=== PATIENT | male | born 1985 | race African-American/Black ===

== ENCOUNTER 2022-05-02 01:43 | Emergency (ER) | payer OTHER ==
[~2022-05-02] VITALS: Ht 188 cm; Wt 96.0 kg
[2022-05-02] MEDS ORDERED: BACITRACIN ZINC OINT UDPKT TOP ONE (03:15)
[2022-05-02] MEDS ORDERED: IBUPROFEN 600MG TABLET PO ONE (03:15)
[2022-05-02] MEDS ORDERED: LIDOCAINE HCL/PF 1% 10 MG/ML 5ML VIAL INFIL ONE (03:15)
[2022-05-02] MEDS ORDERED: TETANUS, DIPHTHERIA, PERTUSSIS VAC/PF 0.5ML (>10YR OLD) IM ONE (03:15)
[2022-05-02] MEDS ORDERED: BO1 TP (04:26)
[2022-05-02] MEDS ORDERED: IBUP-2029 MT (04:26)
[2022-05-02 05:00] VITALS: BP 135/80
== END 2022-05-02 05:15 | disposition home or self-care (01) ==
LOC: ER 01:43
DX: S61.212A Laceration without foreign body of right middle finger without damage to nail, initial encounter (principal); E78.00 Pure hypercholesterolemia, unspecified; W26.0XXA Contact with knife, initial encounter; Y93.89 Activity, other specified; Y92.89 Other specified places as the place of occurrence of the external cause; Y99.8 Other external cause status
CPT/HCPCS: 12002; 90471; 90715; 99283; J3490

== ENCOUNTER 2023-04-01 08:14 | Emergency (ER) | payer OTHER ==
[~2023-04-01] VITALS: Ht 188 cm; Wt 96.0 kg
[~2023-04-01 08:14] MED LIST: BO1 TP; IBUP-2029 MT
[2023-04-01 08:15] VITALS: TEMP 97.6; O2SAT 100
[2023-04-01 08:54] LABS: CLARITY URINE CLEAR (CLEAR); COLOR URINE YELLOW (YELLOW); GLUCOSE URINE NEGATIVE (NEGATIVE); KETONES URINE NEGATIVE (NEGATIVE); LEUKOCYTE ESTERASE URINE NEGATIVE (NEGATIVE); NITRITE URINE NEGATIVE (NEGATIVE); OCCULT BLOOD URINE NEGATIVE (NEGATIVE); PROTEIN URINE NEGATIVE (NEGATIVE); UROBILINOGEN URINE 0.2 E.U./dL (0.2-1.0)
[2023-04-01 09:15] VITALS: BP 119/69; PULSE 69; RESP 16
[2023-04-01] MEDS ORDERED: IBUPROFEN 600MG TABLET PO ONE (09:15)
[2023-04-01] MEDS ORDERED: MECLIZINE 25MG TABLET PO ONE (09:15)
[2023-04-01 09:19] LABS: BASOPHILS % 0.6 % (0.0-2.0); EOSINOPHILS % 3.2 % (0.0-5.0); HEMATOCRIT. 44.5 % (42.0-52.0); HEMOGLOBIN. 14.7 g/dL (14.0-18.0); LYMPHOCYTES % 17.8 % (20.0-50.0); MEAN CORPUSCULAR HEMOGLOBIN 28.5 pg (28.0-32.0); MEAN CORPUSCULAR HGB CONC 33.2 g/dL (31.0-37.0); MEAN CORPUSCULAR VOLUME 85.9 fL (80.0-94.0); MEAN PLATELET VOLUME 7.4 fl (7.4-10.4); MONOCYTES % 8.3 % (2.0-8.0); NEUTROPHILS % 70.1 % (40.0-76.0); PLATELET 317 x1000/uL (130-400); RED BLOOD CELL COUNT 5.18 mill/uL (4.7-6.1); RED CELL DISTRIBUTION WIDTH 13.5 % (11.6-14.6)
[2023-04-01 09:29] LABS: CHLORIDE 109 mEq/L (98-107); INDEX HEMOLYSI 1 (1-3); INDEX ICTERIC 1 (1-4); INDEX LIPEMIC 1 (1-3); POTASSIUM 4.2 mEq/L (3.5-5.1); SODIUM 138 mEq/L (136-145)
[2023-04-01] MEDS ORDERED: MECLIZINE 12.5MG TABLET PO SCH (09:30)
[2023-04-01 09:38] LABS: ALANINE AMINOTRANSFERASE 28 IU/L (13-61); ASPARTATE AMINOTRANSFERASE 18 IU/L (15-37); BILIRUBIN TOTAL 0.6 mg/dL (0.1-1.0); CALCIUM 8.8 mg/dL (8.5-10.1); CARBON DIOXIDE 28 mEq/L (21-32); CREATININE 0.9 mg/dL (0.6-1.3); GLUCOSE 100 mg/dL (70-105); PROTEIN TOTAL 8.3 g/dL (6.0-8.3); TROPONIN I HIGH SENSITIVITY 4 ng/L (<78); UREA NITROGEN BLOOD 9 mg/dL (7-21)
[2023-04-01] MEDS ORDERED: MECL-115 PO ×3 (11:33→11:34)
== END 2023-04-01 11:57 | disposition home or self-care (01) ==
LOC: ER 08:14
DX: R42 Dizziness and giddiness (principal); R51.9 Headache, unspecified; E78.00 Pure hypercholesterolemia, unspecified
CPT/HCPCS: 99285; 71045; 80053; 81003; 85025; 84484; 36415; 93005; J8597

== ENCOUNTER 2023-09-29 07:54 | Emergency (ER) | payer OTHER ==
[~2023-09-29] VITALS: Ht 185.4 cm; Wt 89.0 kg
[~2023-09-29 07:54] MED LIST changes: +MECL-115 PO
[2023-09-29 07:55] VITALS: O2SAT 100
[2023-09-29] MEDS ORDERED: MECLIZINE 25MG TABLET PO ONE (11:00)
[2023-09-29] MEDS ORDERED: MECL-299 MT (11:07)
[2023-09-29] MEDS: IBUPROFEN 600MG TABLET PO ONE (11:09)
[2023-09-29] MEDS: MECLIZINE 12.5MG TABLET PO NR (11:10)
[2023-09-29 12:13] VITALS: BP 138/90; PULSE 60; RESP 19; TEMP 98.2
== END 2023-09-29 12:24 | disposition home or self-care (01) ==
LOC: ER 07:54
DX: R42 Dizziness and giddiness (principal); E78.00 Pure hypercholesterolemia, unspecified
CPT/HCPCS: 99283; J8597

== ENCOUNTER 2024-06-18 15:03 | Emergency (ER) | payer OTHER ==
[~2024-06-18] VITALS: Ht 185.4 cm; Wt 90.0 kg
[~2024-06-18 15:03] MED LIST changes: +MECL-299 MT
[2024-06-18 15:08] VITALS: BP 113/69; PULSE 67; RESP 17; TEMP 97.6; O2SAT 97
[2024-06-18] MEDS: KETOROLAC 30MG/ML VIAL IM ONE (17:33)
[2024-06-18] MEDS ORDERED: IBUP-2029 MT (18:37)
[2024-06-18] MEDS ORDERED: CYCL10TA21 MT (18:37)
== END 2024-06-18 19:01 | disposition home or self-care (01) ==
LOC: ER 15:03
DX: M54.89 Other dorsalgia (principal)
CPT/HCPCS: 99283; 96372; J1885